=== PATIENT | male | born 1930 | race Caucasian/White ===

== ENCOUNTER 2019-02-28 16:09 | Inpatient (IN) | payer OTHER, MEDICAID ==
[~2019-02-28] VITALS: Ht 167.6 cm; Wt 53.5 kg
[2019-02-28 16:31] VITALS: BP_SYST 140
[2019-02-28] MEDS ORDERED: NACL 0.9% 1,000 ML IV ONE (17:15)
[2019-02-28 17:40] LABS: BASOPHILS % (AUTO) 0.4 % (0.0-2.0); EOSINOPHILS # (AUTO) 0.4 K/uL (0.0-0.4); EOSINOPHILS % (AUTO) 5.8 % (0.0-4.0); HEMATOCRIT 39.2 % (36-54); HEMOGLOBIN 13.3 g/dL (14.0-18.0); LYMPHOCYTES # (AUTO) 1.6 K/uL (1.0-5.5); LYMPHOCYTES % (AUTO) 20.6 % (20.5-51.5); MEAN CORPUSCULAR HEMOGLOBIN 33 pg (27-31); MEAN CORPUSCULAR HGB CONC 34 % (32-36); MEAN CORPUSCULAR VOLUME 99 fL (79.0-98.0); MONOCYTES # (AUTO) 0.5 K/uL (0.0-1.0); MONOCYTES % (AUTO) 6.4 % (1.7-9.3); NEUTROPHILS # (AUTO) 5.1 K/uL (1.8-7.7); NEUTROPHILS % (AUTO) 66.8 % (40.0-70.0); PLATELET COUNT (AUTO) 177 K/uL (130-430); RED BLOOD CELL COUNT(AUTO) 3.98 MIL/uL (4.2-6.2); RED CELL DISTRIBUTION WIDTH 13.9 % (9.0-15.0); WHITE BLOOD COUNT (AUTO) 7.6 K/uL (4.8-10.8)
[2019-02-28 18:00] LABS: ANION GAP 6 (5-15); CALCIUM 9.2 mg/dL (8.4-11.0); CHLORIDE 103 mmol/L (98-107); CREATININE 0.83 mg/dL (0.55-1.30); GLUCOSE 86 mg/dL (70-99); POTASSIUM 4.2 mmol/L (3.5-5.1); SODIUM SERUM 138 mmol/L (136-145); UREA NITROGEN, BLOOD 26 mg/dL (8-21)
[2019-02-28 18:06] LABS: ALANINE AMINOTRANSFERASE 19 U/L (12-78); ALBUMIN 3.7 g/dL (3.4-4.8); ASPARTATE AMINOTRANSFERASE 20 U/L (10-37); TOTAL BILIRUBIN 0.4 mg/dL (0.0-1.0)
[2019-02-28] MEDS: D5/0.45 NS 1,000 ML IV SCH (18:45)
[2019-03-01 02:30] VITALS: BP_SYST 131
[2019-03-01] MEDS: D5/0.45 NS 1,000 ML IV SCH ×2 (08:14→23:43)
[2019-03-01 08:26] LABS: BASOPHILS % (AUTO) 0.5 % (0.0-2.0); EOSINOPHILS # (AUTO) 0.4 K/uL (0.0-0.4); EOSINOPHILS % (AUTO) 6.8 % (0.0-4.0); HEMATOCRIT 36.6 % (36-54); HEMOGLOBIN 12.6 g/dL (14.0-18.0); LYMPHOCYTES # (AUTO) 1.4 K/uL (1.0-5.5); LYMPHOCYTES % (AUTO) 22.9 % (20.5-51.5); MEAN CORPUSCULAR HEMOGLOBIN 34 pg (27-31); MEAN CORPUSCULAR HGB CONC 34 % (32-36); MEAN CORPUSCULAR VOLUME 98 fL (79.0-98.0); MONOCYTES # (AUTO) 0.4 K/uL (0.0-1.0); MONOCYTES % (AUTO) 7.1 % (1.7-9.3); NEUTROPHILS # (AUTO) 3.9 K/uL (1.8-7.7); NEUTROPHILS % (AUTO) 62.7 % (40.0-70.0); PLATELET COUNT (AUTO) 158 K/uL (130-430); RED BLOOD CELL COUNT(AUTO) 3.73 MIL/uL (4.2-6.2); RED CELL DISTRIBUTION WIDTH 13.8 % (9.0-15.0); WHITE BLOOD COUNT (AUTO) 6.3 K/uL (4.8-10.8)
[2019-03-01 08:40] LABS: ANION GAP 4 (5-15); CHLORIDE 105 mmol/L (98-107); POTASSIUM 4.5 mmol/L (3.5-5.1); SODIUM SERUM 138 mmol/L (136-145)
[2019-03-01 08:41] LABS: CALCIUM 8.4 mg/dL (8.4-11.0); CHOLESTEROL 184 mg/dL (<200); CREATININE 0.83 mg/dL (0.55-1.30); GLUCOSE 110 mg/dL (70-99); HDL CHOLESTEROL 52 mg/dL (>45); LDL CHOLESTEROL 116 mg/dL (<100); TRIGLYCERIDES 37 mg/dL (30-150); UREA NITROGEN, BLOOD 20 mg/dL (8-21)
[2019-03-01 11:23] VITALS: BP_SYST 120
[2019-03-01 12:00] VITALS: BP_SYST 140
[2019-03-01 16:53] VITALS: BP_SYST 144
[2019-03-01 19:00] VITALS: BP_SYST 127
[2019-03-01 20:00] VITALS: BP_SYST 134
[2019-03-02 08:14] VITALS: BP_SYST 124
[2019-03-02 12:04] VITALS: BP_SYST 123
[2019-03-02 17:21] VITALS: BP_SYST 134
[2019-03-02 20:15] VITALS: BP_SYST 124
[2019-03-02 23:56] VITALS: BP_SYST 140
[2019-03-03 04:00] VITALS: BP_SYST 135
[2019-03-03 12:48] VITALS: BP_SYST 126
[2019-03-03] MEDS: D5/0.45 NS 1,000 ML IV SCH (13:20)
[2019-03-03 16:04] VITALS: BP_SYST 115
[2019-03-03 20:00] VITALS: BP_SYST 115
[2019-03-04] VITALS: BP_SYST 110
[2019-03-04 05:45] VITALS: BP_SYST 110
[2019-03-04] MEDS ORDERED: QUEtiapine FUMARATE 25 MG TABLET PO SCH (09:00)
[2019-03-04 09:20] VITALS: BP_SYST 110
[2019-03-04] MEDS ORDERED: SER25 PO (14:25)
[2019-03-04 14:29] VITALS: BP_SYST 141
[2019-03-04 17:02] VITALS: BP_SYST 141
== END 2019-03-04 17:25 | DRG 70 ==
LOC: SED 16:09 → SMU 18:43
PROVIDERS: ADMIT Internal Medicine; ATTEND Internal Medicine
DX: G93.41 Metabolic encephalopathy (principal); R40.2124 Coma scale, eyes open, to pain, 24 hours or more after hospital admission; F03.91 Unspecified dementia, unspecified severity, with behavioral disturbance; Z68.1 Body mass index [BMI] 19.9 or less, adult; G93.40 Encephalopathy, unspecified; E86.0 Dehydration; R62.7 Adult failure to thrive; D64.9 Anemia, unspecified; G47.9 Sleep disorder, unspecified; E87.8 Other disorders of electrolyte and fluid balance, not elsewhere classified; R09.02 Hypoxemia; Z79.899 Other long term (current) drug therapy; Z95.0 Presence of cardiac pacemaker; Z87.81 Personal history of (healed) traumatic fracture
CPT/HCPCS: 36415; 71045; 80048; 80053; 80061; 82140-TC; 82550-TC; 83880; 84484; 85025; 93005; 96360; 97112-GP; 99285